=== PATIENT | female | born 1985 | race Two or more races ===

== ENCOUNTER 2021-09-08 18:20 | Inpatient (IN) | payer OTHER, MEDICAID, SELFPAY ==
[2021-09-08] VITALS (11 sets, daily range): BP systolic 107–134; BP diastolic 57–76; PULSE 76–97; RESP 16; TEMP 36.6–37.1; O2SAT 98; BMI 28.4
[2021-09-08] MEDS: Oxytocin 10 UNITS/ML Vial IM (18:47)
[2021-09-08 19:08] LABS: Absolute Lymphocyte Count 1.55 X10^3/uL (0.83-4.51); Absolute Neutrophil Count 14.8 X10^3/uL (2.0-7.7); Basophil# 0.05 X10^3/uL; Basophil% 0.3 % (0-1); Eosinophil# 0.04 X10^3/uL; Eosinophils% 0.2 % (0-5); Hematocrit 33.3 % (37-47); Hemoglobin 11.4 g/dL (12.0-15.0); Lymphocyte # 1.55 X10^3/ul (0.83-4.51); Lymphocyte % 8.9 % (19-41); Mean Corp Hgb Conc 34.2 g/dL (32-36); Mean Corpuscular Hgb 29.9 pg (27.0-32.0); Mean Corpuscular Volume 87.4 fL (81-99); Mean Platelet Vol. 10.9 fl (6.2-12.0); NRBC Flagged by Analyzer 0 % (0-5); Neutrophil # 14.75 X10^3/uL (2.7-7.7); Neutrophil % 84.3 % (47-70); Platelet Count 224 K/mm3 (150-450); RBC Distribution Width CV 13.4 % (11.6-14.6); RBC Distribution Width SD 42.4 fl (35.1-43.9); Red Blood Count 3.81 M/mm3 (4.2-5.4); White Blood Count 17.5 K/mm3 (4.4-11.0)
--- NOTE | 2021-09-08 19:11 | PCM.HP.OB ---
HPI - General General Date of Admission: 09/08/21 HPI Narrative SUDHEER RICHARDS, is a 36 F at 41w2d who presented in labor. Maternal Data Information CHRISTOPHER Calculator Estimated Delivery Date Method Current WG Current Estimate 08/30/21 LMP (Certain) 41w 2d [facility] PFS Medical History (Updated 09/08/21 @ 19:[address] Cass Melendez, DO) Anemia Herpes simplex Home Medications Iron (ferrous sulfate) 325 mg PO/SL DAILY 09/08/21 [History Last Taken Unknown] Prenatabs FA 1 tab PO/SL DAILY 09/08/21 [History Last Taken Unknown] acyclovir 400 mg PO/SL TID 09/08/21 [History Last Taken Unknown] Allergy/AdvReac Type Severity Reaction Status Date / Time No Known Allergies Allergy Verified 09/08/21 16:58 Surgical History (Updated 09/08/21 @ 17:03 by Zofia Calles) H/O dilation and curettage Vital Signs Vital Signs Vital Signs: 09/08/21 16:17 09/08/21 18:57 Temperature 98.0 F Temperature Source Temporal Pulse Rate 82 76 Blood Pressure 120/57 L 107/60 BP Systolic 120 107 BP Diastolic 57 60 Pulse Ox 98 Weight Weight: 165 lb 8 oz Body Mass Index (BMI) 28.4 Labs Labs Labs: Blood Type Pending Antibody Screen Pending Hct 33.3 % (37-47) L Hgb 11.4 g/dL (12.0-15.0) L Assessment & Plan (1) 41 weeks gestation of : PLAN: Patient presented to L&D and precipitously delivered. See op report for details. GBS positive - untreated. No HSV lesions on exam. (2) Active labor at term: (3) Positive GBS test: (4) History of herpes genitalis:
--- NOTE | 2021-09-08 19:19 | PCM.OPRPT ---
Problems Associated Problem List Diagnoses (1) Active labor at term: (2) 41 weeks gestation of : Report of Operation Date of Procedure: 09/08/21 Pre-Operative Diagnosis: 41 week gestation, multiparous patient, labor at term Post-Operative Diagnosis: As above, precipitous delivery Surgery/Procedure Performed:: Description of Surgical Findings:: Patient presented to L&D at 4-5 cm dilated and precipitously delivered. Normal appearing placenta with 3 VC. 2nd degree perineal laceration. Apgars 9, 9. Surgeon: Cass Melendez Type of Anesthesia: None Special Medications: None Specimen's removed: Placenta Drains: None Estimated Blood Loss (mL): 100 Fluids Replaced: N/A Description of Procedure: The patient presented to labor and delivery at 4-5 cm dilated and quickly progressed to complete. She precipitously delivered a viable male by the nursing staff. I was called at 6:21 PM for delivery, and I presented to labor and delivery at 6:34 PM for delivery. Upon entering the room a viable male infant was on the mother's chest and crying. The infant was delivered by nursing staff, and the cord was already clamped and cut. A second-degree perineal laceration was noted. 15 cc of local was infiltrated. Using 3-0 Vicryl the second-degree laceration was repaired in usual fashion. The placenta delivered spontaneously and was normal-appearing and intact with three-vessel cord. IM Pitocin was given. The fundus was firm and bleeding hemostatic. Vaginal sweep was performed. Needle and sponge counts were correct. Grafts/Implants Used: None Complications None Admit VTE Documentation VTE Present on Admission: No
--- NOTE | 2021-09-08 22:04 | NURSING ---
This RN assuming care of patient and at this time. Report received from Romeo PARRY.
[2021-09-09 04:10] VITALS: BP 107/60; PULSE 69; RESP 18; TEMP 36.4
[2021-09-09 08:13] VITALS: BP 96/50; PULSE 66; RESP 16; TEMP 36.3
--- NOTE | 2021-09-09 11:21 | PCM.PN.OB ---
Subjective Subjective Patient is doing well this morning. Pain is well controlled. Ambulating and voiding without difficulty. Tolerating a diet. Lochia is normal. She is breast-feeding with some difficulty with latching. Objective Data Objective Data Vital Signs: Vital Signs Temp Pulse Resp BP Pulse Ox 97.3 F L 66 16 96/50 L 98 09/09/21 08:13 09/09/21 08:13 09/09/21 08:13 09/09/21 08:13 09/08/21 16:17 Oxygen Delivery Method Room Air Weight: 165 lb 8 oz Body Mass Index (BMI) 28.4 Intake & Output: Intake and Output for Last 24 Hours 09/07/21 09/08/21 09/09/21 23:59 23:59 23:59 Output Total 1350 / 1350 Balance -1350 / -1350 Lab / Micro Data Result Diagrams: 09/08/21 18:50 Labs: Laboratory Results - last 24 hr 09/08/21 18:50: WBC 17.5 H, RBC 3.81 L, Hgb 11.4 L, Hct 33.3 L, MCV 87.4, MCH 29.9, MCHC 34.2, RDW Std Deviation 42.4, RDW Coeff of Agustina 13.4, Plt Count 224, MPV 10.9, Immature Gran % (Auto) 2.300 H, Neut % (Auto) 84.3 H, Lymph % (Auto) 8.9 L, Rooks % (Auto) 4.0, Eos % (Auto) 0.2, Baso % (Auto) 0.3, Absolute Neuts (auto) 14.8 H, Absolute Lymphs (auto) 1.55, Nucleated RBC % 0 09/08/21 18:50: Blood Type O POSITIVE, Antibody Screen NEGATIVE Physical Exam Const alert and no apparent distress General Appearance: comfortable Assessment & Plan (1) Vaginal delivery: PLAN: PPD#1 s/p doing well. with some difficulty with latching - to meet with tomorrow. Anticipate discharge tomorrow.
[2021-09-09 11:36] VITALS: BP 103/54; PULSE 74; RESP 16; TEMP 36.4; O2SAT 96
[2021-09-09 15:37] VITALS: BP 96/52; PULSE 62; RESP 16; TEMP 36.6; O2SAT 97
[2021-09-09 21:20] VITALS: BP 102/40; PULSE 66; RESP 21; TEMP 36.2; O2SAT 96
[2021-09-10 01:25] VITALS: BP 91/51; PULSE 58; RESP 16; TEMP 36.7; O2SAT 98
--- NOTE | 2021-09-10 07:15 | NURSING ---
bedside report given to Nicole Warren RN and Bhumi Belcher RN who are assuming care of pt at this time
[2021-09-10 09:20] VITALS: BP 97/43; PULSE 64; RESP 16; TEMP 36.3; O2SAT 98
--- NOTE | 2021-09-10 10:53 | PCM.DC.SUM ---
Providers Date of Admission: 09/08/21 Primary Care Physician: Smitha Primary Care Phys Reason For Visit: LABOR DELIVERY Diagnosis Discharge Diagnosis (1) Vaginal delivery: Status: Acute Code(s): O80 - Encounter for full-term uncomplicated delivery Medications at Discharge Home Medications Iron (ferrous sulfate) 325 mg PO/SL DAILY 09/08/21 Prenatabs FA 1 tab PO/SL DAILY 09/08/21 acyclovir 400 mg PO/SL TID 09/08/21 Weight / BMI Weight Weight: 165 lb 8 oz Body Mass Index (BMI) 28.4 ABG / Lab / Microbiology Data Result Diagrams: 09/08/21 18:50 Meaningful Use Info Meaningful Use Diagnoses (Choose all that apply): None applicable Discharge Plan Admission Admit Date/Time: 09/08/21 18:20 Primary Reason for Your Visit: Vaginal Delivery Attending Provider: Cass Melnedez Primary Care Provider: Care Physician,No Primary Instructions Patient Instructions: After a Vaginal Discharge Orders/Prescriptions Prescriptions: No Action Iron (ferrous sulfate) 325 mg PO/SL DAILY RF: 0 Prenatabs FA 1 tab PO/SL DAILY RF: 0 acyclovir 400 mg PO/SL TID RF: 0 Referrals / Follow Up: aCss Melendez DO [STAFF PHYSICIAN] - (Follow up virtual in 2 weeks and 6 weeks in person) Care Physician,No Primary [Primary Care Provider] - Disposition Disposition (needs filled in before D/C Order can be placed): Home, Self Care
--- NOTE | 2021-09-10 11:00 | PN.OBGYN_ITS ---
Subjective Subjective Doing well per patient and nursing staff. Ambulating and taking PO without difficulty. Voiding and passing flatus. Pain controlled. , services for assistance. Denies headache, visual changes, chest pain, shortness of breath, leg pain or increased bleeding. Lochia normal. Objective Data Objective Data Vital Signs: Vital Signs Temp Pulse Resp BP Pulse Ox 97.3 F L 64 16 97/43 L 98 09/10/21 09:20 09/10/21 09:20 09/10/21 09:20 09/10/21 09:20 09/10/21 09:20 Oxygen Delivery Method Room Air Weight: 165 lb 8 oz Body Mass Index (BMI) 28.4 Intake & Output: Intake and Output for Last 24 Hours 09/08/21 09/09/21 09/10/21 23:59 23:59 23:59 Output Total 1350 / 1350 Balance -1350 / -1350 Lab / Micro Data Result Diagrams: 09/08/21 18:50 ROS Constitutional Constitutional: Reports systems reviewed and no addt'l complaints, except as documented; Denies headache(s) Eyes Eyes: Denies acute decrease in peripheral vision, blurry vision or change in vision ENT HEENT: Reports systems reviewed and no addt'l complaints, except as documented Cardiovascular Cardiovascular: Denies chest pain or dizziness Respiratory/Chest Respiratory/Chest: Denies cough, dyspnea, dyspnea on exertion, shortness of breath at rest or shortness of breath with exertion Gastrointestinal Gastrointestinal: Denies abdominal pain, diarrhea, nausea or vomiting Genitourinary Genitourinary: Denies abdominal discomfort Musculoskeletal Musculoskeletal: Denies limited range of motion Integumentary Integumentary: Reports systems reviewed and no addt'l complaints, except as documented Neurologic Neurologic: Reports systems reviewed and no addt'l complaints, except as documented Psychiatric Psychiatric: Reports systems reviewed and no addt'l complaints, except as doc umented Endocrine Endocrinology: Reports systems reviewed and no addt'l complaints, except as documented Hematologic/Lymphatic Hematologic/Lymphatic: Reports systems reviewed and no addt'l complaints, except as documented Allergic/Immunologic Allergic/Immunologic: Reports systems reviewed and no addt'l complaints, except as documented Physical Exam Const alert and oriented x3 General Appearance: cooperative Orientation / Consciousness: awake, oriented to person, oriented to place and oriented to time Exam Limitations: no limitations HEENT normocephalic Head and Scalp: normal to inspection, normocephalic and atraumatic Face and Sinus: normal facial exam Eyes General Eye: normal appearance of both eyes Neck full ROM Chest Chest: symmetrical chest wall rise Resp normal respiratory effort and normal air movement Auscultation: clear to auscultation bilaterally Cardio regular rate, regular rhythm, S1 normal heart sound, S2 normal heart sound, no murmurs, no rub, no gallops and no clicks GI normal to inspection, nondistended, normoactive bowel sounds and non-tender GI Narrative: Fundus firm 2 below U appearance of the vagina normal Bladder / Kidney Exam: no CVA tenderness Back/Spine normal ROM Extremity normal to inspection and full ROM Skin no rashes or lesions noted Neuro oriented x3, CN's II-XII intact bilaterally and moves all extremities Sensorium / Orientation: awake, alert and oriented to person Motor Exam: clonus absent Deep Tendon Reflexes: Rt Patellar (L4): 2+ and Lt Patellar (L4): 2+ Assessment & Plan (1) Vaginal delivery: (2) History of herpes genitalis: (3) Positive GBS test: PLAN: 1) Routine PP 2) services upon request 3) Vitals stable 4) Declines medications for pain 5) Follow up in 2 weeks and 6 weeks 6) D/C home
[2021-09-10 11:15] VITALS: RESP 16
== END 2021-09-10 11:20 | disposition home or self-care (01) | DRG 807 ==
LOC: WP 18:24 → WPOUT 09-10 14:51
PROVIDERS: Admitting Provider Obstetrics & Gynecology; Visit Provider Obstetrics & Gynecology
DX: O48.0 Post-term pregnancy (principal); Z37.0 Single live birth; D64.9 Anemia, unspecified; O99.02 Anemia complicating childbirth; O62.3 Precipitate labor; O70.1 Second degree perineal laceration during delivery; O99.824 Streptococcus B carrier state complicating childbirth; Z3A.41 41 weeks gestation of pregnancy; Z86.19 Personal history of other infectious and parasitic diseases
CPT/HCPCS: 59025; 59050; 85025; 86850; 86900; 86901; 99218; G0378

== ENCOUNTER → 2024-01-20 | Outpatient (CLI) | payer OTHER, SELFPAY ==
[2024-01-20 17:43] LABS: Hematocrit 39.4 % (37-47); Hemoglobin 12.8 g/dL (12.0-15.0); Mean Corp Hgb Conc 32.5 g/dL (32-36); Mean Corpuscular Hgb 28.1 pg (27.0-32.0); Mean Corpuscular Volume 86.6 fL (81-99); Platelet Count 316 K/mm3 (150-450); RBC Distribution Width CV 12.1 % (11.6-14.6); RBC Distribution Width SD 38.3 fl (35.1-43.9); Red Blood Count 4.55 M/mm3 (4.2-5.4); White Blood Count 9.4 K/mm3 (4.4-11.0)
[2024-01-20 17:59] LABS: Vitamin B12 512 pg/mL (211-911); Vitamin D,25 Hydroxy 41.5 ng/mL
[2024-01-20 18:01] LABS: Internal QC Validated? YES +Cl - CLEAR BKGD; Pregnancy, Serum, hCG Quali. NEGATIVE Negative; Record Kit Lot#, Serum Preg. 772476
[2024-01-20 18:14] LABS: ALB/GLOB Ratio 0.9 RATIO (0.9-2.4); AST(SGOT) 19 U/L (15-37); Alanine Aminotransfer ALT/SGPT 27 U/L (13-56); Alkaline Phosphatase 70 U/L (45-117); Anion Gap 6 (5-15); BUN 9 mg/dL (7-18); BUN/Creat Ratio 15.1 RATIO (10-20); Calcium,Total 9.1 mg/dL (8.5-10.1); Chloride 102 mmol/L (98-107); EST Glomerular Filtration Rate 121 mL/min (>60); Est Glom Filt Rate - Afr Amer 146 mL/min (>60); Globulin 4.5 g/dL (2.2-4.2); Glucose 103 mg/dL (74-106); Iron 51 ug/dL (50-170); Potassium 3.8 mmol/L (3.5-5.1); Protein, Total 8.5 g/dL (6.4-8.2); Sodium Level 136 mmol/L (136-145); Thyroid Stim Hormone (TSH) 0.93 uIU/mL (0.358-3.74)
== END | disposition home or self-care (01) ==
LOC: MFPLAB 15:16
PROVIDERS: PCP Family Medicine; Visit Provider Family Medicine
DX: F32.A Depression, unspecified (principal)
CPT/HCPCS: 36415; 80053; 82306; 82607; 83540; 84443; 84703; 85027

== ENCOUNTER 2024-02-06 11:26 | Emergency (ER) | payer OTHER, SELFPAY ==
[2024-02-06 11:27] VITALS: BP 114/75; PULSE 97; RESP 16; TEMP 36.4; O2SAT 98; BMI 24.7
--- NOTE | 2024-02-06 12:08 | EDS_ITS ---
HPI HPI - Psych History of Present Illness Chief Complaint: Mental Health Informant: patient Onset/Context/Timing Onset: Weeks Context: Gradual Onset Timing: Continuous Current Severity: Moderate Maximum Severity: Moderate Associated Symptoms Associated Symptoms - Psych: Positive for Depressed Narrative Narrative: 39-year-old female history of anxiety depression has been on anxiety depression meds for about 2+ weeks without any significant improvement. She is and has 3 young boys at home 816 2 2 of the boys go to elementary school. The other day her friends who have been helping her went to her house she was in the position lying in bed with her 2-year-old. Recently her mom was in town for 2 weeks to help her but she had to go back home. Patient has been very depressed. She has thoughts of suicide but no specific plan. She denies any prior attempt. Prior similar symptoms: Yes Recent Illness/Hospitalization: No PFSH PFSH Medical History Herpes simplex Anemia Home Medications ?Medication ?Instructions ?Recorded ?Last Taken ?Type Iron (ferrous sulfate) 325 mg PO/SL DAILY anemia 09/08/21 Unknown History Prenatabs FA 1 tab PO/SL DAILY 09/08/21 Unknown History acyclovir 400 mg PO/SL TID HSV infection 09/08/21 Unknown History Allergy/AdvReac Type Severity Reaction Status Date / Time No Known Allergies Allergy Verified 02/06/24 11:27 Surgical History H/O dilation and curettage Social History Smoking Status: Never smoker ROS ROS ED ROS Narrative Denies recent illness. Constitutional Constitutional ED: Denies chills or fever(s) Eyes Eyes: Denies blurry vision ENT ENT ED: Denies ear pain Cardiovascular Cardiovascular: Denies chest pain Respiratory/Chest Respiratory/Chest: Denies cough or dyspnea Gastrointestinal Gastrointestinal: Denies abdominal pain Genitourinary Genitourinary ED: Denies dysuria or hematuria Musculoskeletal Musculoskeletal: Denies arthralgias Integumentary Denies abscess Neurologic Neurologic: Denies headache(s) Psychiatric Psychiatric: Reports anxiety, depression and suicidal thoughts Endocrine Endocrinology: Denies polydipsia, polyphagia or polyuria Hematologic/Lymphatic Hematologic/Lymphatic: Denies easy bleeding, easy bruising or lymphadenopathy Allergic/Immunologic Allergic/Immunologic ED: Denies mouth swelling, tongue swelling or urticaria EXAM Physical Exam Narrative Exam Narrative: 39-year-old female. Vital signs stable afebrile. H EENT exam unremarkable. Neck nontender. No trauma. Lungs clear to auscultation. Heart regular rhythm no murmur. Abdomen soft nontender. Moving all 4 extremities. Calves are nontender without edema or cords. 5 out of 5 contact center engineer strength. Dorsi plant arflexion intact. Back nontender. Neurologically patient is awake alert no focal motor deficits. Answering questions and following commands. She is depressed. She will make eye contact and is forthcoming with information. Const Vital Signs: 02/06/24 11:27 02/06/24 12:27 Temperature 97.5 F L Temperature Source Temporal Pulse Rate 97 92 Respiratory Rate 16 18 Blood Pressure 114/75 125/77 H Blood Pressure Mean 88 93 Pulse Ox 98 99 Oxygen Delivery Method Room Air Room Air Positive well nourished and well developed; Negative for cachectic, contractures or unkempt General Appearance ED: well developed and NAD; Negative for unkempt, cachectic or contractures Nutritional Appearance: Negative for cachectic HEENT Reports moist mucous membranes normocephalic and atraumatic; Negative for trauma or tenderness Eyes PERRL and EOMs intact bilaterally General Eye ED: Negative for pale conjunctiva or scleral icterus Neck no lymphadenopathy, supple and no JVD General: Negative for tenderness Resp normal respiratory effort and clear to auscultation bilaterally Effort and Inspection: Negative for retractions Auscultation: Negative for rales, rhonchi, wheezes, diminished lung sounds or other Cardio S1 normal heart sound, S2 normal heart sound and no murmurs Palpation: Negative for other Rate: regular rate Rhythm: regular rhythm GI non-tender, non-distended and no masses Inspection: Negative for abdominal distention Auscultation: normoactive bowel sounds Palpation: soft; Negative for tender, guarding or mass Back/Spine no CVA tenderness General Back: Negative for CVA tenderness Cervical Spine: Negative for cervical spine tenderness Thoracic Spine / Upper Back: Negative for thoracic spinal tenderness Lumbar Spine / Lower Back: Negative for lumbar spinal tenderness Coccyx: Negative for other Extremity normal to inspection General Extremety ED: Negative for edema or tenderness General Extremity: Negative for edema Neuro oriented x3, CN's II-XII intact bilaterally and no sensory deficits noted Sensorium / Orientation: alert, oriented to person, oriented to place and oriented to time; Negative for orientation impaired, confused, lethargic or stuporous Motor Exam: strength 5/5 throughout Psych mental status grossly normal, thought process normal, cooperative, speech normal, activity/motor behavior normal and denies hallucinations; Negative for affect normal or denies suicidal ideation Appearance: grossly normal, appropriate and well kempt; Negative for unkempt Attitude: calm and engaged Activity / Motor Behavior: appropriate eye contact Speech: normal speech Mood & Affect: depressed Thought Process: normal thought process Thought Content: normal thought content Attention / Concentration: attention grossly intact Memory / Cognition: memory grossly intact Judgement: judgement good Skin Lesions: no lesions Rashes: no rashes Trauma: Negative for abrasion MDM MDM MDM Narrative Medical decision making narrative: 39-year-old female history of anxiety and depression has been on meds for 2 weeks without any significant relief. She is having trouble doing her activities of daily living and taking care of her 3 boys at home. She will be a crisis evaluation with screening labs for ED mental health. History & Record Review Discussion w/independent historian: Patient Additional record(s) reviewed:: Prior inpatient record, Prior outpatient record, Prior ED visit and Prior labs Lab Data Attestation: I reviewed the patient's lab results. Lab results narrative: CBC shows a white count 9. H&H 13 and 41. Platelets 243. Electrolytes show sodium 134. Gap 2. Normal BUN and creatinine. Glucose 110. Urine tox negative. Alcohol negative. Labs: Laboratory Results - last 24 hr 02/06/24 12:25 WBC 9.8 RBC 4.75 Hgb 13.6 Hct 41.3 MCV 86.9 MCH 28.6 MCHC 32.9 RDW Std Deviation 38.7 RDW Coeff of Agustina 12.0 Plt Count 243 MPV 10.5 Immature Gran % (Auto) 0.500 Neut % (Auto) 70.9 H Lymph % (Auto) 20.5 [place] % (Auto) 6.7 Eos % (Auto) 1.0 Baso % (Auto) 0.4 Absolute Neuts (auto) 6.9 Absolute Lymphs (auto) 2.00 Nucleated RBC % 0 Sodium 134 L Potassium 3.7 Chloride 103 Carbon Dioxide 29.0 Anion Gap 2 L BUN 11 Creatinine 0.58 Estim Creat Clear Calc 114.68 Est GFR (MDRD) Af Amer 150 Est GFR (MDRD) Non-Af 124 BUN/Creatinine Ratio 18.9 Glucose 110 H Calcium 8.9 Serum , Qual NEGATIVE Urine Opiates Screen NEGATIVE Urine Methadone Screen NEGATIVE Ur Barbiturates Screen NEGATIVE Ur Phencyclidine Scrn NEGATIVE Ur Amphetamines Screen NEGATIVE MDMA (Ecstasy) Screen NEGATIVE U Benzodiazepines Scrn NEGATIVE Urine Cocaine Screen NEGATIVE U Cannabinoids Screen NEGATIVE Ur Drug Screen Comment Ethyl Alcohol 4.0 Discharge Plan Triage Chief Complaint: Mental Health ED Provider: Jeronimo Smiley Dx/Rx/DC Orders Clinical Impression: Anxiety, Depression, Suicidal thoughts Prescriptions: No Action Iron (ferrous sulfate) 325 mg PO/SL DAILY Prenatabs FA 1 tab PO/SL DAILY acyclovir 400 mg PO/SL TID Primary Care Provider: Fabricio Issa Referrals: Fabricio Issa MD [Primary Care Provider] - Print Language: Yemeni
[2024-02-06 12:27] VITALS: BP 125/77; PULSE 92; RESP 18; O2SAT 99
[2024-02-06 12:36] LABS: Absolute Neutrophil Count 6.9 X10^3/uL (2.0-7.7); Basophil# 0.04 X10^3/uL; Basophil% 0.4 % (0-1); Hematocrit 41.3 % (37-47); Hemoglobin 13.6 g/dL (12.0-15.0); Lymphocyte % 20.5 % (19-41); Mean Corp Hgb Conc 32.9 g/dL (32-36); Mean Corpuscular Hgb 28.6 pg (27.0-32.0); Mean Corpuscular Volume 86.9 fL (81-99); Mean Platelet Vol. 10.5 fl (6.2-12.0); Monocyte# 0.65 X10^3/uL; Monocyte% 6.7 % (0-10); NRBC Flagged by Analyzer 0 % (0-5); Neutrophil # 6.93 X10^3/uL (2.7-7.7); Neutrophil % 70.9 % (47-70); Platelet Count 243 K/mm3 (150-450); RBC Distribution Width SD 38.7 fl (35.1-43.9); Red Blood Count 4.75 M/mm3 (4.2-5.4); White Blood Count 9.8 K/mm3 (4.4-11.0)
[2024-02-06 13:00] LABS: Anion Gap 2 (5-15); BUN 11 mg/dL (7-18); BUN/Creat Ratio 18.9 RATIO (10-20); Calcium,Total 8.9 mg/dL (8.5-10.1); Chloride 103 mmol/L (98-107); Creatinine, Serum 0.58 mg/dL (0.55-1.02); EST Glomerular Filtration Rate 124 mL/min (>60); Est Glom Filt Rate - Afr Amer 150 mL/min (>60); Estimated Creatinine Clearance 114.68 ml/min; Glucose 110 mg/dL (74-106); Potassium 3.7 mmol/L (3.5-5.1); Sodium Level 134 mmol/L (136-145)
[2024-02-06 13:04] LABS: Internal QC Validated? YES +Cl - CLEAR BKGD; Pregnancy, Serum, hCG Quali. NEGATIVE Negative; Record Kit Lot#, Serum Preg. 772476
[2024-02-06 13:24] LABS: Amphetamine Urine VISTA NEGATIVE (<1000 ng/mL); Barbiturate Urine VISTA NEGATIVE (< 200 ng/mL); Benzodiazepine Urine VISTA NEGATIVE (< 200 ng/mL); Cocaine Urine VISTA NEGATIVE (< 300 ng/mL); Ecstacy Urine VISTA NEGATIVE (< 500 ng/mL); Methadone Urine VISTA NEGATIVE (< 300 ng/mL); PCP Urine VISTA NEGATIVE (< 25 ng/mL); THC Urine VISTA NEGATIVE (< 50 ng/mL); Vista UDS pH Range 6
--- NOTE | 2024-02-06 13:29 | ED.RN ---
Crisis called and chart faxed to crisis
--- NOTE | 2024-02-06 21:59 | ED.RN ---
[facility] HAS REFERRED PT TO [facility]
[2024-02-06 22:21] VITALS: BP 110/65; PULSE 86; RESP 18; O2SAT 98
--- NOTE | 2024-02-06 23:01 | ED.RN ---
[facility] CALLED ME ASKING IF PT HAD ANY SECONDARY INSURANCE BECAUSE THEY DO NOT ACCEPT HER CURRENT INSURANCE. SHE DOES NOT SO UNFORTUNATELY [facility] HAD TO REFUSE REFERRAL
--- NOTE | 2024-02-07 03:48 | ED.RN ---
STILL WAITING FOR UPDATE FROM [facility] AFTER REFERRAL SENT OUT
--- NOTE | 2024-02-07 04:25 | ED.RN ---
PT IS BEEN REFERRED TO [facility]. THEY REQUEST AND EKG OF PT, WHICH HAS BEEN SENT OVER VIA FAX
[2024-02-07 05:22] VITALS: BP 121/76; PULSE 81; RESP 16; O2SAT 97
--- NOTE | 2024-02-07 05:54 | ED.RN ---
counseling center called and stated pt had been accepted at [facility] but they need a pink slip faxed to them. after the pink slip was fax, [facility] called stated that they are waiting to verify insurance. they have a bed but if she does not have insurance they can not accept her.
--- NOTE | 2024-02-07 05:56 | ED.RN ---
vicky trinidad called back and said ok to set up transport.
--- NOTE | 2024-02-07 06:12 | ED.RN ---
pt and spouse updated that pt is accepted at [facility].
[2024-02-07 06:25] VITALS: BP 114/73; PULSE 99; RESP 16; TEMP 36.1; O2SAT 98
[2024-02-07 09:51] VITALS: BP 102/65; PULSE 79; RESP 17; TEMP 36.8
== END 2024-02-07 10:05 ==
LOC: ED 12:29
PROVIDERS: Emergency Provider Emergency Medicine; PCP Family Medicine; Visit Provider Emergency Medicine
DX: F32.A Depression, unspecified (principal); F41.9 Anxiety disorder, unspecified; R45.851 Suicidal ideations; Z79.899 Other long term (current) drug therapy
CPT/HCPCS: 80048; 80307; 82077; 84703; 85025; 93005; 99285

== ENCOUNTER → 2024-10-21 | Outpatient (CLI) | payer OTHER, SELFPAY ==
[2024-10-21 15:37] LABS: Hematocrit 39.1 % (37-47); Hemoglobin 12.8 g/dL (12.0-15.0); Mean Corp Hgb Conc 32.7 g/dL (32-36); Mean Corpuscular Hgb 28.9 pg (27.0-32.0); Mean Corpuscular Volume 88.3 fL (81-99); Mean Platelet Vol. 11.8 fl (6.2-12.0); Platelet Count 300 K/mm3 (150-450); RBC Distribution Width CV 12.1 % (11.6-14.6); RBC Distribution Width SD 39.2 fl (35.1-43.9); Red Blood Count 4.43 M/mm3 (4.2-5.4); White Blood Count 7.3 K/mm3 (4.4-11.0)
[2024-10-21 15:42] LABS: Erythrocyte Sedimentation Rate 6 mm/hr (0-30)
[2024-10-21 15:44] LABS: ALB/GLOB Ratio 1.4 RATIO (0.9-2.4); AST(SGOT) 13 U/L (<=31); Alanine Aminotransfer ALT/SGPT 7 U/L (<=34); Albumin, Serum 4.5 g/dL (3.5-5.0); Alkaline Phosphatase 56 U/L (35-104); Anion Gap 12 (5-15); BUN 14 mg/dL (4-19); BUN/Creat Ratio 23.5 RATIO (10-20); Calcium,Total 9.7 mg/dL (7.6-11.0); Carbon Dioxide 25.4 mmol/L (21.0-32.0); Chloride 102 mmol/L (98-108); EST Glomerular Filtration Rate 119 (>60); Globulin 3.2 g/dL (2.2-4.2); Glucose 101 mg/dL (70-99); Iron 85 ug/dL (50-170); Potassium 3.8 mmol/L (3.3-5.1); Protein, Total 7.7 g/dL (5.9-8.4); Sodium Level 139 mmol/L (133-145); Thyroid Stim Hormone (TSH) 0.863 uIU/mL (0.300-4.200); Total Bilirubin 0.85 mg/dL (0.00-1.30); Vitamin B12 979 pg/mL (180-914); Vitamin D,25 Hydroxy 29.6 ng/mL (30-100)
== END | disposition home or self-care (01) ==
LOC: MFPLAB 12:05
PROVIDERS: PCP Family Medicine; Referring Provider Family Medicine; Visit Provider Family Medicine
DX: F32.A Depression, unspecified (principal); R53.83 Other fatigue
CPT/HCPCS: 36415; 80053; 82306; 82607; 83540; 84443; 85027; 85652